=== PATIENT | male | born 1935 | race Native Hawaiian/Other Pacific Islander ===

== ENCOUNTER 2016-09-26 12:51 | Emergency (ER) | payer MEDICARE, OTHER ==
[2016-09-26 14:02] VITALS: BP 114/71
--- NOTE | 2016-09-26 14:44 | UC ---
Skin Complaint HPI - History of Current Complaint Chief Complaint: [facility] Time Seen by Provider: 09/26/16 14:36 Stated Complaint: SKIN COMPLAINT Hx Obtained From: Patient Onset/Duration: Sudden Onset, Lasting Days - 2, Worse Since - this morning. Timing: Constant Onset Severity: Mild Current Severity: Moderate Location: Face - in front of the right ear, swelling. Character: Swelling, Pain, Redness, Raised, Painful Aggravating: Touch Alleviating: Nothing Associated Signs & Symptoms: Positive: Tenderness. Negative: Fever, Chills - Allergy/Home Medications Allergies/Adverse Reactions: Allergies Allergy/AdvReac Type Severity Reaction Status Date / Time No Known Allergies Allergy Verified 09/26/16 14:02 Home Medications: Home Medications Amiodarone HCl 1 tab PO DAILY 09/26/16 [History Confirmed 09/26/16] Amitriptyline HCl [Elavil] 1 tab PO BEDTIME 09/26/16 [History Confirmed 09/26/16 ] Aspirin [Aspirin 81 MG TAB] 1 tab PO DAILY 09/26/16 [History Confirmed 09/26/16] Atorvastatin* [Lipitor 10 MG*] 1 tab PO BEDTIME 09/26/16 [History Confirmed 12/05] Cholecalciferol [Vitamin D3] 1 tab PO DAILY 09/26/16 [History Confirmed 09/26/16 ] Ferrous Sulfate [Iron (Ferrous Sulfate)] 65 mg PO DAILY 09/26/16 [History Confirmed 09/26/16] Omeprazole 1 tab PO DAILY 09/26/16 [History Confirmed 09/26/16] Oxymetazoline HCl [Nasal [place] Maximum Stren] 1 spray BOTH NARES BEDTIME [History Confirmed 09/26/16] Spironolactone [Aldactone 25 MG-] 1 tab PO DAILY 09/26/16 [History Confirmed 12/05] celeCOXIB CAP* [Celebrex CAP*] 1 tab PO DAILY 09/26/16 [History Confirmed ] Review of Systems Skin: Other - swelling right cheek. Respiratory: Cough All Other Systems Reviewed And Are Negative: Yes PMH/Surg Hx/FS Hx/Imm Hx Cardiovascular History: Hypertension, Congestive Heart Failure Respiratory History: COPD - Surgical History Surgical History: Yes Surgery Procedure, Year, and Place: Hernia Repair; Left Hip Replacement; - Family History Known Family History: Positive: Cardiac Disease, Hypertension Negative: Diabetes - Social History Occupation: Retired Lives: With Family Alcohol Use: Daily Alcohol Amount: 1 shot of dyana Substance Use Type: None Smoking Status (MU): Former Smoker Have You Smoked in the Last Year: No Physical Exam Triage Information Reviewed: Yes Appearance: Well-Appearing, No Pain Distress, Well-Nourished Vital Signs: Initial Vital Signs Temp 96.9 F 09/26/16 13:52 Pulse 60 09/26/16 13:52 Resp 16 09/26/16 13:52 BP 114/71 09/26/16 13:52 Pulse Ox 100 09/26/16 13:52 Vital Signs Reviewed: Yes Eyes: Positive: Conjunctiva Clear ENT: Positive: Pharyngeal erythema, TMs normal Neck exam: Normal Respiratory Exam: Normal Cardiovascular Exam: Normal Musculoskeletal: Positive: ROM Limited @ - hand arthritis, antalgic gait. Neurological Exam: Normal Psychological Exam: Normal Skin: Positive: Other - large cystic swelling in front on the right ear 5x7cm non-mobile, warm and tender without a lot of redness. Course/Dx - Differential Diagnoses - Skin Complaint Differential Diagnoses: Abscess, Cellulitis, Impetigo - Diagnoses Provider Diagnoses: Abscess right cheek. Discharge - Discharge Plan Condition: Stable Disposition: HOME Prescriptions: Amoxicillin/Clavulanate TAB* [Augmentin TAB 875*] 875 mg PO BID #20 tab Patient Education Materials: Abscess (ED), Sialoadenitis (ED), Amoxicillin/ Clavulanate Potassium (By mouth) Additional Instructions: For the diarrhea with Augmentin take an imodium every time you take the antibiotic.
== END 2016-09-26 15:09 | disposition home or self-care (01) ==
LOC: UCCORT 12:51
DX: L02.01 Cutaneous abscess of face (principal); J44.9 Chronic obstructive pulmonary disease, unspecified
CPT/HCPCS: 99212; G0463